=== PATIENT | male | born 1960 | race Hispanic/Latino ===

== ENCOUNTER 2017-10-22 09:15 | Outpatient (CLI) | payer OTHER ==
[2017-10-22 10:05] LABS: Blood Urea Nitrogen 12 mg/dL (9-20)
--- NOTE | 2017-10-26 14:20 | Cat Scan Report ---
CT NECK WITH CONTRAST: HISTORY: Malignant neoplasm of the sigmoid colon. TECHNIQUE: Helical CT following IV contrast. Sagittal and coronal reformatted images. FINDINGS: The parotid and submandibular glands are normal. The carotid sheaths are intact. There is no evidence of adenopathy within the neck. The thyroid gland is normal. The glottic structures are normal. The airway is patent. Strap musculature is unremarkable. Hyoid bone and thyroid cartilage are intact. IMPRESSION: Unremarkable CT neck.
--- NOTE | 2017-10-26 14:24 | Cat Scan Report ---
CT CHEST WITH CONTRAST: HISTORY: chest pain. COMPARISON: 02/07/15. TECHNIQUE: Helical CT in 1.25mm intervals following IV contrast. Sagittal and coronal reformatted images. FINDINGS: Thyroid gland: Normal. Tracheobronchial tree: Normal. Esophagus: Normal. Heart: Normal. Pericardium: Normal. Mediastinum: Normal. Lung Rocha: Normal. Pleural Spaces: Normal. Musculoskeletal: Normal. IMPRESSION: Unremarkable CT chest with contrast. No evidence for disease metastasis to the chest. No change since 02/07/15.
--- NOTE | 2017-10-26 14:30 | Cat Scan Report ---
CT ABDOMEN PELVIS WITH CONTRAST: HISTORY: Malignant neoplasm of the sigmoid colon. COMPARISON: 02/07/15. TECHNIQUE: Helical CT in 1.25mm intervals following IV contrast. Sagittal and coronal reconstructions. FINDINGS: Liver: Mild diffuse fatty infiltration of the liver parenchyma is unchanged. No suspicious liver mass is identified. Biliary system: Normal. Pancreas: Normal. Spleen: Normal. Kidneys/ureters/bladder: Normal. Adrenal glands: Normal. Aorta: Normal caliber. Intestines: A surgical suture line is identified in the proximal descending colon. No recurrent GI mass, obstruction or inflammation is identified. Appendix: Normal. Pelvic viscera: Normal. Ascites: None. Adenopathy: None. Musculoskeletal: No suspicious bony lesion. IMPRESSION: Surgical changes. No evidence for disease recurrence or metastasis. Stable findings since 02/07/15. Fatty changes throughout the liver, unchanged.
== END 2017-10-22 09:16 | disposition home or self-care (01) ==
LOC: SPVIMAG 09:15 → CT 09:16
PROVIDERS: ATTEND Internal Medicine Hematology & Oncology
DX: C18.4 Malignant neoplasm of transverse colon (principal); C18.7 Malignant neoplasm of sigmoid colon; K76.0 Fatty (change of) liver, not elsewhere classified; R07.9 Chest pain, unspecified; I10 Essential (primary) hypertension
CPT/HCPCS: 36415; 70491; 71260; 74177; 82565; 84520; Q9967

== ENCOUNTER 2018-11-19 10:41 | Outpatient (CLI) | payer OTHER ==
[2018-11-19 11:24] LABS: Blood Urea Nitrogen 11 mg/dL (9-20)
--- NOTE | 2018-11-21 22:39 | Cat Scan Report ---
PROCEDURE: CT chest with contrast. TECHNIQUE: Computerized axial tomography of the chest was performed during the IV injection of iodin ated nonionic contrast. CT DOSE LENGTH PRODUCT: 3473.1 mGycm HISTORY: MALIGNANT NEOPLASM OF SIGMOID COLON COMPARISONS: CT chest 10/21/2017. Dictation not available. FINDINGS: The trachea and central bronchi appear normal. The lungs are clear and well expanded. There are no pu lmonary nodules. There are no pleural effusions. The thoracic aorta has a normal caliber. There is no mediastinal adenopathy. The heart size is normal. The adrenal glands are not enlarged. The thoracic skeleton appears intact. IMPRESSION: No evidence of metastatic disease. This document is electronically signed by Moises Euceda MD., November 21 2018 11:37:40 PM ET
--- NOTE | 2018-11-21 22:45 | Cat Scan Report ---
PROCEDURE: CT abdomen and pelvis with contrast. TECHNIQUE: Computerized axial tomography of the abdomen and pelvis was performed after the IV inject ion of iodinated nonionic contrast. CT DOSE LENGTH PRODUCT: Not provided. mGycm HISTORY: MALIGNANT NEOPLASM OF SIGMOID COLON COMPARISONS: CT abdomen and pelvis 10/21/2017. Dictation not available. FINDINGS: The lung bases are clear. There are no pleural effusions. The heart size is normal. The liver, pancre as and spleen appear normal. The gallbladder is present. There is no biliary dilatation. The adrenal glands are not enlarged. Both kidneys appear normal in size and configuration. The abdominal aorta espinoza s a normal caliber. There is no retroperitoneal adenopathy. There are several diverticula in the desc ending colon and sigmoid colon. There are no signs of acute diverticulitis. There are intestinal stap les near the splenic flexure of the colon. The bladder and seminal vesicles appear normal. The prosta te is mildly enlarged. The regional skeleton appears intact. IMPRESSION: Previous colonic surgery. Mild colonic diverticulosis. No evidence of metastatic disease . This document is electronically signed by Moises Euceda MD., November 21 2018 11:43:37 PM ET
== END 2018-11-19 10:42 | disposition home or self-care (01) ==
LOC: CT 10:41
PROVIDERS: ATTEND Internal Medicine Hematology & Oncology
DX: K57.30 Diverticulosis of large intestine without perforation or abscess without bleeding (principal); C18.7 Malignant neoplasm of sigmoid colon
CPT/HCPCS: 36415; 71260; 74177; 82565; 84520; Q9967